=== PATIENT | female | born 1985 | race Caucasian/White ===

== ENCOUNTER 2017-05-04 05:29 | Emergency (ER) | payer SELFPAY ==
[2017-05-04 05:50] VITALS: BP 123/70; PULSE 66; TEMP 98.7; BMI 38.9
--- NOTE | 2017-05-04 06:05 | PDOC ---
History of Present Illness - General Chief Complaint: Sore Throat Stated Complaint: SORE THROAT Time Seen by Provider: 05/04/17 05:31 History Source: Patient - History of Present Illness Initial Comments: 05/04/17 06:08 [facility] 31-year-old female no medical history presents to the emergency department complaining of sore throat 2 days without fever, chills, nausea/vomiting, headaches, dizziness, lightheadedness, shortness of breath, chest pains. Patient states she is able to eat and drink without much difficulties. 05/04/17 06:39 Past History - Past Medical History Allergies/Adverse Reactions: Allergies Allergy/AdvReac Type Severity Reaction Status Date / Time No Known Allergies Allergy Verified 05/04/17 05:44 - Suicide/Smoking/Psychosocial Hx Smoking History: Never smoked Have you smoked in the past 12 months: No Information on smoking cessation initiated: No Hx Alcohol Use: No Drug/Substance Use Hx: No Review of Systems - Review of Systems Able to Perform ROS?: Yes Comments:: 05/04/17 06:08 CONSTITUTIONAL: Absent: fever, chills, diaphoresis, generalized weakness, malaise, loss of appetite HEENT: +throat pain Absent: rhinorrhea, nasal congestion, throat swelling, difficulty swallowing, mouth swelling, ear pain, eye pain, visual Changes CARDIOVASCULAR: Absent: chest pain, loss of consciousness, palpitations, irregular heart rate, peripheral edema RESPIRATORY: Absent: cough, shortness of breath, dyspnea with exertion, orthopnea, wheezing, stridor, hemoptysis GASTROINTESTINAL: Absent: abdominal pain, abdominal distension, nausea, vomiting, diarrhea, constipation, melena, hematochezia Is the patient limited Romansh proficient: No *Physical Exam - Vital Signs Last Vital Signs Temp Pulse Resp BP Pulse Ox 98.7 F 66 20 123/70 95 05/04/17 05:44 05/04/17 05:44 05/04/17 05:44 05/04/17 05:44 05/04/17 05:44 - Physical Exam Comments: 05/04/17 06:08 GENERAL: Well developed, well nourished. Awake and alert. No acute distress. HEENT: Normocephalic, atraumatic. PERRLA, EOMI. No conjunctival pallor. Sclera are non- icteric. Moist mucous membranes. Oropharynx is clear. NECK: Supple. Full ROM. No JVD. Carotid pulses 2+ and symmetric, without bruits. No thyromegaly. No lymphadenopathy. CARDIOVASCULAR: Regular rate and rhythm. No murmurs, rubs, or gallops. Distal pulses are 2+ and symmetric. PULMONARY: No evidence of respiratory distress. Lungs clear to auscultation bilaterally. No wheezing, rales or rhonchi. ABDOMINAL: Soft. Non-tender. Non-distended. No rebound or guarding. No organomegaly. Normoactive bowel sounds. *DC/Admit/Observation/Transfer Diagnosis at time of Disposition: Pharyngitis Qualifiers: Pharyngitis/tonsillitis etiology: unspecified etiology Qualified Code(s): J02.9 - Acute pharyngitis, unspecified - Discharge Dispostion Condition at time of disposition: Stable Admit: No - Referrals Referrals: Issac Rivera MD [Staff Physician] - - Patient Instructions Printed Discharge Instructions: DI for Viral Pharyngitis Additional Instructions: Follow up with the ENT/Dr. Rivera Return to the ER for severe/persistent/worsening symptoms - Post Discharge Activity
== END 2017-05-04 07:08 | disposition home or self-care (01) ==
LOC: JER 05:29
DX: J02.9 Acute pharyngitis, unspecified (principal)
CPT/HCPCS: 87070; 87430; 99281-25

== ENCOUNTER 2017-10-04 16:45 | Emergency (ER) | payer OTHER ==
[2017-10-04] MEDS ORDERED: DIPHTH,PERTUSS(ACELL),TET 0.5 ML DISP.SYRIN IM ONE (16:48)
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
[2017-10-04 16:51] VITALS: BP 150/78; PULSE 92; TEMP 98; BMI 42.8
[2017-10-04] MEDS ORDERED: IBUPROFEN 600 MG TABLET (FP) PO ONE (17:21)
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
== END 2017-10-04 19:05 | disposition home or self-care (01) ==
LOC: JERFT 16:45
PROC: 3E0234Z Introduction of Serum, Toxoid and Vaccine into Muscle, Percutaneous Approach (ICD-10-PCS; principal; 2017-10-04)
DX: T23.001A Burn of unspecified degree of right hand, unspecified site, initial encounter (principal); X08.8XXA Exposure to other specified smoke, fire and flames, initial encounter; Y93.89 Activity, other specified; Y92.9 Unspecified place or not applicable
CPT/HCPCS: 90715; 99281-25

== ENCOUNTER 2019-03-29 00:09 | Emergency (ER) | payer SELFPAY ==
[2019-03-29 00:42] VITALS: BP 124/82; PULSE 106; TEMP 97.4; BMI 42.0
--- NOTE | 2019-03-29 00:42 | PDOC ---
History of Present Illness - General Stated Complaint: ABDOMINAL PAIN & ABCESS Time Seen by Provider: 03/29/19 00:41 History Source: Patient Exam Limitations: No Limitations - History of Present Illness Initial Comments: 03/29/19 00:42 America Akbar is a 33yF w PMHx obesity presenting w abdominal wound. Noted umbilical discomfort for last 2 days. This evening, noted purulent discharge coming from umbilicus. Picks umbilicus w finger regularly. Denies fever, AB pain Past History - Past Medical History Allergies/Adverse Reactions: Allergies Allergy/AdvReac Type Severity Reaction Status Date / Time No Known Allergies Allergy Verified 03/29/19 00:25 Home Medications: Ambulatory Orders Clindamycin [Cleocin -] 300 mg PO QID 7 Days #28 capsule 03/29/19 COPD: No - Surgical History Cholecystectomy: Yes - Psycho Social/Smoking Cessation Hx Smoking History: Never smoked Have you smoked in the past 12 months: No Information on smoking cessation initiated: No Hx Alcohol Use: No Drug/Substance Use Hx: No Substance Use Type: None Review of Systems - Review of Systems Constitutional: No: Chills, Fever HEENTM: No: Eye Pain, Nose Pain, Throat Pain, Mouth Pain Respiratory: No: Cough, Shortness of Breath Cardiac (ROS): No: Chest Pain, Palpitations, Syncope ABD/GI: No: Abdominal Distended, Constipated, Diarrhea, Nausea, Vomiting : No: Burning, Dysuria, Discharge, Flank Pain, Hematuria Musculoskeletal: No: Back Pain, Joint Pain, Muscle Pain, Neck Pain Integumentary: No: Bruising, Flushing Neurological: No: Headache, Seizure, Tingling, Tremors Psychiatric: No: Anxiety, Depression, Stressors Endocrine: No: Excessive Sweating, Flushing, Intolerance to Cold, Intolerance to Heat Hematologic/Lymphatic: No: Anemia, Blood Clots *Physical Exam - Vital Signs Last Vital Signs Temp Pulse Resp BP Pulse Ox 97.4 F L 106 H 20 124/82 100 03/29/19 00:25 03/29/19 00:25 03/29/19 00:25 03/29/19 00:25 03/29/19 00:25 - Physical Exam General Appearance: Yes: Nourished, Appropriately Dressed. No: Apparent Distress HEENT: positive: EOMI, BARB, Normal Voice, Hearing Grossly Normal. negative: Scleral Icterus (R), Scleral Icterus (L), Nasal Congestion, Rhinorrhea Respiratory/Chest: positive: Lungs Clear, Normal Breath Sounds. negative: Chest Tender, Respiratory Distress, Crackles, Rales, Rhonchi, Stridor, Wheezing Cardiovascular: positive: Regular Rhythm, Regular Rate, S1, S2. negative: Edema , Murmur Gastrointestinal/Abdominal: positive: Normal Bowel Sounds, Flat, Soft, Other ( Umbilicus - mild discomfort w palpation, no mass/skin opening appreciated. Not erythematous/edematous/warm). negative: Tender, Organomegaly Integumentary: positive: Normal Color Neurologic: positive: Fully Oriented, Alert, Normal Response, Responsive. negative: Sensory Deficit, Confused, Disoriented ED Treatment Course - LABORATORY CBC & Chemistry Diagram: 03/29/19 02:58 03/29/19 02:58 Medical Decision Making - Medical Decision Making 03/29/19 01:18 Pre-op : CBC CMP coags T&S EKG CXR - cancelled when US did not show abscess Umbilical US did not show fluid collection Given clindamycin for infection, lido patch for back pain --- America Akbar is a 33yF w PMHx obesity presenting w purulent umbilical wound concerning for abscess vs cellulitis. Umbilical US did not show fluid collection. Afebrile. Given clindamycin for infection, lido patch for back pain. D/c w PCP referral and clindamycin x7d prescription Discharge - Discharge Information Problems reviewed: Yes Clinical Impression/Diagnosis: Abscess Condition: Good - Admission No - Additional Discharge Information Prescriptions: Clindamycin [Cleocin -] 300 mg PO QID 7 Days #28 capsule - Follow up/Referral Referrals: Louis Mcclellan MD [Staff Physician] - - Patient Discharge Instructions Patient Printed Discharge Instructions: DI for Skin Abscess Additional Instructions: You were seen for abdominal drainage. The ultrasound did not show anything that could be drained. You were given antibiotics for your infection. Please make an appointment to see the referred primary care doctor regarding this visit. Take the prescribed Clindamycin as directed on packaging for the next 7 days. Come back to the ED if you have worsening pain or fevers - Post Discharge Activity
[2019-03-29] MEDS ORDERED: SULFAMETHOXAZOLE/TRIMETHOPRIM 800MG/160MG D.S. TABLET PO ONE (01:44)
[2019-03-29] MEDS ORDERED: LIDOCAINE 5% TOPICAL PATCH TP ONE (01:58)
[2019-03-29] MEDS ORDERED: CLINDAMYCIN HCL 150 MG CAPSULE (FP) PO ONE (02:06)
[2019-03-29] MEDS ORDERED: CLINDAMYCIN HCL 150 MG CAPSULE (FP) ONE (02:47)
[2019-03-29] MEDS ORDERED: LIDOCAINE 5% TOPICAL PATCH ONE (02:48)
[2019-03-29] MEDS ORDERED: CLINDAMYCIN IVPB 300 MG in DEXTROSE 5%-WATER - 48 ML IVPB ONE (02:54)
[2019-03-29 03:03] LABS: BASO % 0.8 % (0-2.0); EOS % 1.5 % (0-4.5); HEMATOCRIT 39.6 % (32.4-45.2); MCH 27.1 pg (25.7-33.7); MCHC 32.7 g/dl (32.0-36.0); MEAN CELL VOLUME 82.7 fl (80-96); MEAN PLT VOLUME 8.8 fl (7.5-11.1); MONO % 8.6 % (3.8-10.2); NEUT % 73.1 % (42.8-82.8); PLATELET COUNT 245 K/MM3 (134-434); RBC 4.79 M/mm3 (3.60-5.2); RDW 13.5 % (11.6-15.6); WHITE BLOOD COUNT 10.4 K/mm3 (4.0-10.0)
[2019-03-29 03:21] LABS: ALBUMIN 3.3 g/dl (3.4-5.0); BILIRUBIN,TOTAL 0.3 mg/dL (0.2-1); BLOOD UREA NITROGEN 12.1 mg/dL (7-18); CALCIUM 8.8 mg/dL (8.5-10.1); CREATININE 0.7 mg/dL (0.55-1.3); POTASSIUM 4.4 mmol/L (3.5-5.1); TOT PROT 6.5 g/dl (6.4-8.2)
--- NOTE | 2019-03-29 03:52 | PDOC ---
Documentation entered by Myriam Mendieta SCRIBE, acting as scribe for Callie Bowman MD. Callie Bowman MD: This documentation has been prepared by the Gayatri saleh Nirvannie, SCRIBE, under my direction and personally reviewed by me in its entirety. I confirm that the documentation accurately reflects all work, treatment, procedures, and medical decision making performed by me. Attending Attestation - Resident Resident Name: Randall Trevino - ED Attending Attestation I have performed the following: I have examined & evaluated the patient, The case was reviewed & discussed with the resident, I agree w/resident's findings & plan - HPI HPI: 03/29/19 01:25 The patient is a 33 year old female, with no significant past medical history, who presents to the emergency department with, pain and foul-smelling purulent discharge from the umbilicus. Patient notes the pain to have onset two days ago and the discharge to onset today. She admits to picking at the affected area often. She denies recent fevers or chills. Allergies: NKDA - Physicial Exam PE: 03/29/19 03:50 Pt has no abd pain; no guarding and no rebound. No flank pain. - Medical Decision Making 03/29/19 05:14 Patient Name: TOSHIA CONTE THIS IS A PRELIMINARY REPORT FROM [facility] DATE OF SERVICE: 2019-03-29 01:38:21 IMAGES: 20 EXAM: SOFT TISSUE ABDOMEN US HISTORY: Rule out collection/abscess in the umbilical region COMPARISON: None. FINDINGS The soft tissues of and around the umbilicus were scanned. No fluid collections are identified in this portion of the abdominal wall. Pt is stable for d/c with clinda 300mg QID; she received a dose in the ER She will follow with her PMD She was [facility] and the clinic across the street for docs. 03/29/19 05:15 Stable for discharge home
--- NOTE | 2019-03-29 03:53 | PDOC ---
*Physical Exam - Vital Signs Last Vital Signs Temp Pulse Resp BP Pulse Ox 97.4 F L 106 H 20 124/82 100 03/29/19 00:25 03/29/19 00:25 03/29/19 00:25 03/29/19 00:25 03/29/19 00:25 ED Treatment Course - LABORATORY CBC & Chemistry Diagram: 03/29/19 02:58 03/29/19 02:58 - ADDITIONAL ORDERS Additional order review: Laboratory Results 03/29/19 03/29/19 02:58 02:58 Sodium 140 Potassium 4.4 Chloride 105 Carbon Dioxide 29 Anion Gap 6 L BUN 12.1 Creatinine 0.7 Est GFR (CKD-EPI)AfAm 131.02 Est GFR (CKD-EPI)NonAf 113.04 Random Glucose 109 H Calcium 8.8 Total Bilirubin 0.3 AST 19 ALT 31 Alkaline Phosphatase 91 Total Protein 6.5 Albumin 3.3 L Serum , Qual Negative 03/29/19 02:58 RBC 4.79 MCV 82.7 MCHC 32.7 RDW 13.5 MPV 8.8 Neutrophils % 73.1 Lymphocytes % 16.0 Monocytes % 8.6 Eosinophils % 1.5 Basophils % 0.8 - RADIOLOGY Radiology Studies Ordered: Category Date Time Status SOFT TISSUE ABDOMEN US [US] Stat Ultrasound 03/29/19 01:35 Taken - Medications Given in the ED: ED Medications Discontinued Medications Generic Name Dose Route Start Last Admin Trade Name Freq PRN Reason Stop Dose Admin Clindamycin HCl 450 mg 03/29/19 02:06 03/29/19 02:53 Cleocin - PO 03/29/19 02:07 450 mg ONCE ONE Administration Clindamycin Phosphate 300 mg/ 50 mls @ 100 mls/hr 03/29/19 02:54 03/29/19 03: 26 Dextrose IVPB 03/29/19 03:23 100 mls/hr ONCE ONE Administration Lidocaine 1 patch 03/29/19 01:58 03/29/19 02:53 Lidoderm Patch - TP 03/29/19 01:59 1 patch ONCE ONE Administration Trimethoprim/Sulfamethoxazole 1 each 03/29/19 01:44 03/29/19 02:37 Bactrim Ds - PO 03/29/19 01:45 Not Given ONCE ONE Medical Decision Making - Medical Decision Making 03/29/19 05:35 This note was opened to provide pt with a work note. Discharge - Discharge Information Problems reviewed: Yes Clinical Impression/Diagnosis: Abscess Condition: Good Disposition: HOME - Additional Discharge Information Prescriptions: Bacitracin - [Bacitracin Topical Ointment -] 1 applic TP BID #10 g Clindamycin [Cleocin -] 300 mg PO QID 7 Days #28 capsule Lidocaine 5% Patch [Lidoderm Patch -] 1 patch TP DAILY #30 patch - Follow up/Referral Referrals: Louis Mcclellan MD [Staff Physician] - - Patient Discharge Instructions Patient Printed Discharge Instructions: DI for Skin Abscess Additional Instructions: You were seen for abdominal drainage. The ultrasound did not show anything that could be drained. You were given antibiotics for your infection. Please make an appointment to see the referred primary care doctor regarding this visit. Take the prescribed Clindamycin as directed on packaging for the next 7 days. Come back to the ED if you have worsening pain or fevers - Post Discharge Activity Work/Back to School Note: Back to Work
[2019-03-29 04:08] LABS: INR 1.06 (0.83-1.09); PROTHROMBIN TIME (PATIENT) 12.5 SEC (9.7-13.0)
--- NOTE | 2019-03-29 10:30 | EKG ---
Test Reason : Blood Pressure : / mmHG Vent. Rate : 085 BPM Atrial Rate : 085 BPM P-R Int : 146 ms QRS Dur : 078 ms QT Int : 356 ms P-R-T Axes : 046 -03 003 degrees QTc Int : 423 ms NORMAL SINUS RHYTHM POSSIBLE LEFT ATRIAL ENLARGEMENT BORDERLINE ECG NO PREVIOUS ECGS AVAILABLE Confirmed by MD JUAREZ, GIGI ([id number]) on 03/29/2019 10:30:07 AM Referred By: Confirmed By:GIGI PIZARRO MD
[2019-03-29] MEDS ORDERED: LIDOCAINE PATCH REMOVAL MC SCH (22:00)
== END 2019-03-29 03:40 | disposition home or self-care (01) ==
LOC: JER 00:09
DX: L02.216 Cutaneous abscess of umbilicus (principal); E66.9 Obesity, unspecified; Z68.41 Body mass index [BMI] 40.0-44.9, adult
CPT/HCPCS: 36415; 76705-TC; 80053; 84703; 85025; 85610; 85730; 93005; 93010; 99283-25

== ENCOUNTER 2021-07-04 05:22 | Emergency (ER) | payer OTHER ==
[2021-07-04 06:04] VITALS: BMI 42.2
[2021-07-04 07:55] LABS: CHLORIDE 107 mmol/L (98-107); SODIUM 142 mmol/L (136-145)
[2021-07-04 07:56] LABS: BASO % 0.5 % (0-2.0); EOS % 1.5 % (0-4.5); HEMATOCRIT 40.6 % (32.4-45.2); HEMOGLOBIN 13.1 GM/dL (10.7-15.3); MCH 26.4 pg (25.7-33.7); MCHC 32.3 g/dl (32.0-36.0); MEAN CELL VOLUME 81.8 fl (80-96); MEAN PLT VOLUME 8.4 fl (7.5-11.1); MONO % 7.8 % (3.8-10.2); NEUT % 70.2 % (42.8-82.8); PLATELET COUNT 292 10^3/uL (134-434); RBC 4.96 M/mm3 (3.60-5.2); RDW 13.5 % (11.6-15.6); WHITE BLOOD COUNT 8.1 K/mm3 (4.0-10.0)
[2021-07-04 07:57] LABS: CALCIUM 8.8 mg/dL (8.5-10.1)
[2021-07-04 07:58] LABS: ALBUMIN 3.4 g/dl (3.4-5.0); ANION GAP 6 MMOL/L (8-16); BLOOD UREA NITROGEN 8.7 mg/dL (7-18); CO2 29 mmol/L (21-32); GLUCOSE,RANDOM 114 mg/dL (74-106)
[2021-07-04 08:00] LABS: SGPT/ALT 26 U/L (13-61)
[2021-07-04 08:01] LABS: CREATININE 0.7 mg/dL (0.55-1.3); SGOT/AST 16 U/L (15-37)
[2021-07-04 08:02] LABS: BILIRUBIN,TOTAL 0.4 mg/dL (0.2-1)
[2021-07-04 08:04] LABS: ALK PHOS 80 U/L (45-117)
[2021-07-04 09:17] VITALS: BP 134/79; PULSE 68; TEMP 98
== END 2021-07-04 09:17 | disposition home or self-care (01) ==
LOC: JER 05:22
DX: R00.2 Palpitations (principal); I49.1 Atrial premature depolarization
CPT/HCPCS: 36415; 71046-TC-FY; 80053; 82550; 84443; 84484; 84703; 85025; 93005; 93010; 99284-25; C9803; U0003; U0005

== ENCOUNTER 2021-11-25 19:46 | Emergency (ER) | payer OTHER ==
[2021-11-25 19:58] VITALS: BP 112/67; PULSE 64; TEMP 98.4; BMI 43.4
[2021-11-25] MEDS ORDERED: diazePAM 5 MG TABLET PO ONE (20:58)
[2021-11-25] MEDS ORDERED: LIDOCAINE 5% TOPICAL PATCH TP ONE (20:58)
[2021-11-25] MEDS ORDERED: ACETAMINOPHEN 500 MG TABLET (FP) PO ONE (20:58)
[2021-11-25] MEDS ORDERED: LIDOCAINE 5% TOPICAL PATCH ONE (21:07)
[2021-11-25] MEDS ORDERED: diazePAM 5 MG TABLET ONE (21:07)
[2021-11-25] MEDS ORDERED: ACETAMINOPHEN 500 MG TABLET (FP) ONE (21:08)
[2021-11-25] MEDS ORDERED: LIDOCAINE PATCH REMOVAL MC SCH (22:00)
== END 2021-11-25 22:25 | disposition home or self-care (01) ==
LOC: JERFT 19:46
DX: M54.31 Sciatica, right side (principal)
CPT/HCPCS: 99283-25

== ENCOUNTER → 2023-12-04 | Day surgery (SDC) | payer OTHER | END | disposition home or self-care (01) | LOC: JRADUS-SUR 12:50 → JRAD 12:50 | PROVIDERS: ATTEND Obstetrics & Gynecology | PROC: BU18YZZ Fluoroscopy of Uterus and Fallopian Tubes using Other Contrast (ICD-10-PCS; principal; 2023-12-04) | DX: N97.9 Female infertility, unspecified (principal) | CPT/HCPCS: 58340; 74740-TC-FY; 76000-TC-FY; 84703 ==

== ENCOUNTER 2024-01-22 22:18 | Emergency (ER) | payer OTHER ==
[2024-01-22 22:25] VITALS: BP 122/70; PULSE 80; RESP 16; TEMP 98.2; BMI 43.9
[2024-01-22] MEDS: LIDOCAINE 5% TOPICAL PATCH TP ONE (22:47)
[2024-01-22] MEDS: LIDOCAINE PATCH REMOVAL MC SCH (22:47)
[2024-01-22] MEDS: oxyCODONE HCL 5 MG TABLET PO ONE (22:47)
[2024-01-22] MEDS ORDERED: oxyCODONE HCL 5 MG TABLET ONE (22:49)
[2024-01-22] MEDS ORDERED: LIDOCAINE 5% TOPICAL PATCH ONE (22:49)
[2024-01-22] MEDS ORDERED: LIDOCAINE 4% PATCH TP ONE (22:50)
[2024-01-23] MEDS ORDERED: LIDOCAINE 4% PATCH TP ONE (02:23)
== END 2024-01-23 02:19 | disposition home or self-care (01) ==
LOC: JER 22:18
DX: M54.50 Low back pain, unspecified (principal); G89.18 Other acute postprocedural pain
CPT/HCPCS: 99283-25